=== PATIENT | female | born 1965 | race Caucasian/White ===

== ENCOUNTER 2022-09-15 07:56 | Emergency (ER) | payer MEDICAID, OTHER ==
[~2022-09-15] VITALS: Ht 160 cm; Wt 54.4 kg
[2022-09-15 08:04] VITALS: BP 124/77
--- NOTE | 2022-09-15 08:10 | NUR ---
at bedside for eval
--- NOTE | 2022-09-15 08:29 | NUR ---
Patient discharged to home in stable condition. Written and verbal after care instructions given. Patient verbalizes understanding of instruction.
== END 2022-09-15 08:33 | disposition home or self-care (01) ==
LOC: ER 08:01
DX: G62.9 Polyneuropathy, unspecified (principal)

== ENCOUNTER 2024-08-14 07:20 | Emergency (ER) | payer MEDICAID ==
[~2024-08-14] VITALS: Ht 160 cm; Wt 54.4 kg
[2024-08-14 09:34] VITALS: BP 128/87; TEMP 98.3; O2SAT 100
== END 2024-08-14 09:34 | disposition home or self-care (01) ==
LOC: ER 07:20
DX: J06.9 Acute upper respiratory infection, unspecified (principal); M81.0 Age-related osteoporosis without current pathological fracture; R05.9 Cough, unspecified; R09.81 Nasal congestion; Z20.822 Contact with and (suspected) exposure to COVID-19
CPT/HCPCS: 71045-TC